=== PATIENT | male | born 1990 | race Caucasian/White ===

== ENCOUNTER 2019-09-10 20:05 | Emergency (ER) | payer SELFPAY ==
[2019-09-10 21:50] LABS: ABSOLUTE LYMPHOCYTES (AUTO) 1.8 10^3/uL (0.5-4.7); ABSOLUTE MONOCYTES (AUTO) 0.7 10^3/uL (0.1-1.4); ABSOLUTE NEUT (AUTO) 5.6 10^3/uL (1.7-8.2); BASOPHILS % (AUTO) 0.5 % (0-2); EOSINOPHILS % (AUTO) 0.3 % (0-6); HEMATOCRIT 44.8 % (37.9-51.0); HEMOGLOBIN 16.1 g/dL (13.5-17.0); LYMPHOCYTES % (AUTO) 21.8 % (13-45); MEAN CORPUSCULAR HEMOGLOBIN 35.1 pg (27.0-33.4); MEAN CORPUSCULAR VOLUME 98 fl (80-97); MONOCYTES % (AUTO) 8.3 % (3-13); PLATELET COUNT 216 10^3/uL (150-450); RED BLOOD COUNT 4.59 10^6/uL (4.35-5.55); RED CELL DISTRIBUTION WIDTH 12.4 % (11.5-14.0); SEGMENTED NEUTROPHILS % (AUTO) 69.1 % (42-78); TOTAL CELLS COUNTED % (AUTO) 100 %; WHITE BLOOD COUNT 8.2 10^3/uL (4.0-10.5)
[2019-09-10 22:03] LABS: ALBUMIN 5.3 g/dL (3.5-5.0); ALKALINE PHOSPHATASE 75 U/L (38-126); ANION GAP 11 (5-19); ASPARTATE AMINO TRANSFERASE 94 U/L (17-59); BILIRUBIN,DIRECT 0.1 mg/dL (0.0-0.4); BILIRUBIN,TOTAL 1.3 mg/dL (0.2-1.3); BLOOD UREA NITROGEN 8 mg/dL (7-20); CALCIUM 10.2 mg/dL (8.4-10.2); CARBON DIOXIDE 29 mmol/L (22-30); CHLORIDE 101 mmol/L (98-107); CREATINE KINASE 104 U/L (55-170); GLUCOSE 109 mg/dL (75-110); POTASSIUM 4.2 mmol/L (3.6-5.0); TOTAL PROTEIN 8.6 g/dL (6.3-8.2)
[2019-09-10 22:15] LABS: CREATINE KINASE MB 0.25 ng/mL (<4.55)
[2019-09-10 22:17] LABS: TROPONIN I < 0.012 ng/mL
--- NOTE | 2019-09-10 23:55 | EKG REPORT ---
SEVERITY:- NORMAL ECG - SINUS RHYTHM : Confirmed by: Mary Escobar 10-Sep-2019 23:55:27
--- NOTE | 2019-09-11 01:45 | ER Document Report ---
ED General - General Chief Complaint: Anxiety Stated Complaint: ANXIETY/FEELS LIKE HEART IS RACING/SHOULDER PAIN Time Seen by Provider: 09/10/19 23:55 Notes: Healthy 29-year-old male presents to the emergency department with chief complaint of anxiety and palpitations. Patient states that he felt "my heart beating out of my chest" and had some left arm pain earlier today. Patient spoke with his fiance and decided to seek evaluation. No associated nausea or vomiting, no diaphoresis, no dyspnea on exertion. No direct family history, no family history of HOCM, patient is not a smoker. Patient states this happened about 2 weeks ago and symptoms were little more significant. Patient is under a lot of stress and is still displaced from [place] and is working a lot of hours. TRAVEL OUTSIDE OF THE [place] IN LAST 30 DAYS: No - Related Data Allergies/Adverse Reactions: No Known Allergies Allergy (Verified 09/10/19 21:14) Past Medical History - Social History Smoking Status: Former Smoker Drug Abuse: None Family History: None Patient has suicidal ideation: No Patient has homicidal ideation: No Traumatic Medical History: Reports: Hx Fractures - compression fractures Past Surgical History: Reports: Hx Orthopedic Surgery - Immunizations Hx Diphtheria, Pertussis, Tetanus Vaccination: Yes Review of Systems - Review of Systems Constitutional: See HPI EENT: No symptoms reported Cardiovascular: See HPI Respiratory: See HPI Gastrointestinal: See HPI Genitourinary: No symptoms reported Male Genitourinary: No symptoms reported Musculoskeletal: No symptoms reported Skin: No symptoms reported Hematologic/Lymphatic: No symptoms reported Neurological/Psychological: No symptoms reported Physical Exam - Vital signs Vitals: Temp Pulse Resp BP Pulse Ox 98.7 F 109 H 20 164/98 H 96 09/10/19 20:11 09/10/19 20:11 09/10/19 20:11 09/10/19 20:11 09/10/19 20:11 - Notes Notes: PHYSICAL EXAMINATION: Reviewed vital signs and charting by RN GENERAL: Alert, interacts well. No acute distress. HEAD: Normocephalic, atraumatic. EYES: Pupils equal and round. Extraocular movements intact. ENT: Oral mucosa moist, tongue midline. NECK: Full range of motion. Trachea midline. LUNGS: Clear to auscultation bilaterally, no wheezes, rales, or rhonchi. No respiratory distress. HEART: Regular rate and rhythm. No murmur ABDOMEN: soft, non-tender. No distention. Bowel sounds present EXTREMITIES: Moves all 4 extremities spontaneously. No edema, No cyanosis. PSYCH: Normal affect, normal mood. SKIN: Warm, dry, normal turgor. No rashes or lesions noted. Course - Re-evaluation Re-evalutation: 09/11/19 01:44 Presentation of chest pain in an otherwise well appearing patient. Low clinical suspicion for ACS given clinical history, exam, EKG without ST elevations or depressions, and negative initial troponin. HEART score 0. PE also seems unlikely given clinical history, absence of tachycardia or dyspnea. Patient is PERC criteria negative. CXR without evidence of pneumothorax or pneumonia. No wi dened mediastinum. Aortic dissection also seems unlikely given history, symmetric pulses, CXR, and vitals. 09/11/19 02:52 Patient with 2- troponins and a negative chest pain work-up. Patient has been instructed to follow-up with a primary doctor for potential stress testing. I also recommended patient employ stress reduction techniques as he has life stressors present. At this time patient is stable for discharge. Precautions given. - Vital Signs Vital signs: Temp Pulse Resp BP Pulse Ox 98.7 F 109 H 20 164/98 H 96 09/10/19 21:14 09/10/19 20:11 09/10/19 20:11 09/10/19 20:11 09/10/19 20:11 - Laboratory Result Diagrams: 09/10/19 21:35 09/10/19 21:35 Laboratory results interpreted by me: 09/10/19 09/10/19 21:35 21:35 MCV 98 H MCH 35.1 H AST 94 H ALT 94 H Total Protein 8.6 H Albumin 5.3 H Discharge - Discharge Clinical Impression: Chest discomfort, Left arm pain, Palpitations Condition: Good Disposition: HOME, SELF-CARE Additional Instructions: You were seen today for chest pain. The exact cause of your pain is unclear. However, based on your cardiac enzyme testing, chest x-ray, and EKG it does not appear that it is from an immediately life-threatening cause at this time. Although your testing here is normal is critical that you follow-up with your primary care physician for continued evaluation of this chest pain and possible stress testing. I recommended you see your physician within the next 24-48 hours to be evaluated for consideration of a stress test. Please return to emergency department immediately if you have worsening of your chest pain, shortness of breath, vomiting, become unable to exert yourself due to pain or difficulty breathing, you pass out, or have any pain that radiates into your arms, jaw, or back. Please also return if you have any additional symptoms that are concerning to you.
--- NOTE | 2019-09-11 04:13 | RADIOLOGY REPORT (SQ) ---
CHEST 1 VIEW on 09/11/2019 at 3:36 AM CLINICAL INDICATION: Chest pain COMPARISON: None FINDINGS: The lungs are clear. Cardiac, hilar and mediastinal contours are within normal limits. Pulmonary vascularity is within normal limits. No bony abnormality is noted. IMPRESSION: No active disease.
[2019-09-11 05:11] VITALS: BP 136/88
== END 2019-09-11 05:13 | disposition home or self-care (01) ==
LOC: ER 20:05
DX: R07.9 Chest pain, unspecified (principal); F43.9 Reaction to severe stress, unspecified; R00.2 Palpitations; M79.602 Pain in left arm; Z87.891 Personal history of nicotine dependence
CPT/HCPCS: 36415; 71045; 80053; 82550; 82553; 84484; 85025; 93005; 93010; 99285